=== PATIENT | female | born 1960 | race Caucasian/White ===

== ENCOUNTER → 2017-03-14 13:28 | Outpatient (CLI) | payer MEDICAID ==
[2013-12-17 06:15] VITALS: BMI 31.6
[~2017-03-14 13:28] MED LIST: CELEXA20 MG PO; HYDROCODONE-APA1 TAB PO; KLONOPIN1 MG PO; PROVENTIL HFA6.7 GM INH; TOPAMAX100 MG PO
== END | disposition home or self-care (01) ==
LOC: D.MRI 13:28
DX: M25.512 Pain in left shoulder (principal)

== ENCOUNTER 2017-04-04 05:30 | Day surgery (SDC) | payer MEDICAID ==
[2017-04-03 13:20] LABS: HEMATOCRIT 42.3 % (36.0-48.0); HEMOGLOBIN 14.4 g/dL (12-16); MCH 31.6 pg (26.0-34.0); MEAN PLATELET VOLUME 11.2 fL (7.4-10.4); RBC 4.55 10x6/uL (4.00-5.40); WBC 5.2 10x3/uL (4.8-10.8)
[2017-04-04 12:03] VITALS: BP 119/63; BMI 35.0
[2017-04-04] MEDS ORDERED: HYDROCODONE-APA1 TAB PO (14:51)
--- NOTE | 2017-04-04 16:57 | NUR ---
5847 DISCHARGE INSTRUCTIONS COMPLETE. PT HAS NO QUESTIONS OR CONCERNS AT THIS TIME. PT INSTRUCTED TO MAKE FOLLOW UP APPOINTMENT DUE TO OFFICE BEING CLOSED. PRESCRIPTION FOR NORCO GIVEN. ESCORTED OUT BY LUZ MARIA RIZVI.
--- NOTE | 2017-04-29 12:37 | OP ---
PATIENT NAME: SOM SHARMA MEDICAL RECORD: [id number] :62 LOCATION:[facility] ADMISSION DATE: SURGEON: LILY GONZALEZ MD DATE OF OPERATION: 04/04/2017 PREOPERATIVE DIAGNOSES: Impingement syndrome of the left shoulder with acromioclavicular arthritis and rotator cuff repair. Also, the patient had a cyst on her left shoulder that was excised as well. POSTOPERATIVE DIAGNOSES: Impingement syndrome of the left shoulder with acromioclavicular arthritis and rotator cuff repair. Also, the patient had a cyst on her left shoulder that was excised as well. PROCEDURES: 1. Left shoulder arthroscopy with arthroscopic rotator cuff repair. 2. Arthroscopic distal clavicle excision through separate incision -- 1 cm. 3. Arthroscopic subacromial decompression with acromioplasty and bursectomy. 4. Removal of subcutaneous cyst on the shoulder itself. OPERATIVE SUMMARY IN DETAIL: After obtaining the appropriate preoperative orthopedic surgery consent as well as anesthetic consultation, evaluation and clearance, the patient was brought to the operating room and placed on the table in supine position. After general laryngeal mask was administered, the patient was placed in a right lateral decubitus position. All pressure points were well padded to include down leg peroneal pad as well as axillary roll. The patient was held firmly to the operating table using the vacuum pack suction system. Left upper extremity and shoulder were then held in place in the Arthrex traction boom at 30 degrees of forward flexion, 30 degrees of abduction with 10 pounds of traction laterally. Arthroscopy was established in the glenohumeral joint from a posterior portal. Anterior portal was established in the anterior safe interval. Diagnostic arthroscopy did reveal the patient to have rotator cuff tear. Accessory lateral portal was created through which the rotator cuff footprint was slightly denuded and portions of nonviable-appearing rotator cuff were taken down with the Arthrex resector. Attention was then turned to the subacromial space. While on the subacromial space, the [place] tissue ablation system was used to denude the undersurface of the acromion of all soft tissue elements and release coracoacromial ligament and also denuded the area around the acromioclavicular joint. A 5.0 barrel bur was used to perform acromioplasty at the level of acromioclavicular joint. Two separate arthroscopic incisions under direct arthroscopic visualization, distal clavicle was taken down for 5 cm. Next, attention was turned to the rotator cuff. A simple inverted #2 FiberTape was utilized to reapproximate the rotator cuff back to the decorticated bleeding footprint. It was held laterally with a 5.5 SwiveLock. Having completed this, arthroscopy portals were closed in routine interrupted fashion. The small area of cyst was very simply excised and came out and appeared to be a nonmalignant simple subcutaneous cyst. It was sent for permanent pathology. The wound was closed after irrigation. Sterile dressings were applied. The patient was awakened, taken to recovery room in stable condition. All final needle and sponge counts were correct. TRANSINT:[id number] Voice Confirmation ID: [id number] DOCUMENT ID: [id number] OPERATIVE REPORT [id number] SOM SHARMA MD, LILY RUSSELL at 1237 CC: [id number] DICTATION DATE: 04/29/17 1048 TRIMMING PRESS OPERATOR: 04/29/17 1220 [facility] 04/04/[address] [address]
== END 2017-04-04 16:55 | disposition home or self-care (01) ==
LOC: D.OPS 05:30 → D.PAN 13:10 → D.OPS 14:00 → D.PAN 14:30 → D.OPS 16:55
PROVIDERS: Anesthesiology
DX: M75.102 Unspecified rotator cuff tear or rupture of left shoulder, not specified as traumatic (principal); M75.42 Impingement syndrome of left shoulder; Z01.812 Encounter for preprocedural laboratory examination

== ENCOUNTER 2019-01-31 04:16 | Outpatient (CLI) | payer MEDICARE, MEDICAID ==
[~2019-01-31] VITALS: Ht 165.1 cm; Wt 102.7 kg
--- NOTE | ~2019-01-31 | HEMODYNAMI ---
PATIENT:SOM SHARMA MEDICAL RECORD: [id number] : 62 [facility] [id number] AD[facility]ION DATE: 01/31/19 Generatedon:01/31/201911:06 Patient name: SOM SHARMA Patient #: [id number] : 1960 Date of study: 01/31/2019 Page: Of Hemodynamic Procedure Report Patient Data Patient Demographics Procedure consent was obtained First Name: SOM Gender: Female Last Name: EDITH : 1960 Patient #: [id number] Age: 58 year(s) Race: SSN: [id number] Additional ID: [id number] Contact details [address]: [address] [place] [address] State: [place] City: [place] Zip code: [address] Past Medical History Allergies Allergen Reaction Date Comments Reported Other allergy 01/31/2019 Mell PRINGLE Admission Admission Data Admission Date: 01/31/2019 Admission Time: 5:05 Arrival Date: 01/31/2019 Arrival Time: 0:00 Room #: D.2124 Insurance Payor: Private health insurance [facility] #: [id number] Height (in.): 64.96 BSA: 2.08 (m2) Height (cm.): 165 BMI: 37.47 (kg/m2) Weight (lbs.): 224.87 Weight (kg.): 102 Lab Results Lab Result Date: 01/31/2019 Lab Result Time: 0:00 Biochemistry Name Units Result Min Max BUN mg/dl 12 --(-*--)-- 7 18 Creatinine mg/dl 0.8 --(-*--)-- 0.6 1.3 eGFR ml/min 78 *-(----)-- 90 120 NONAFRICAN CBC Name Units Result Min Max Hemoglobin g/dl 12.4 *-(----)-- 13.5 17.5 Procedure Procedure Types Cath Procedure Diagnostic Procedure [facility] w/Coronaries Procedure Description Procedure Date Procedure Date: 01/31/2019 Procedure Start Time: 10:58 Procedure End Time: 11:06 Procedure Staff Name Function Saurav Lam MD Performing Physician Wilfirdo Rosenberg RT Monitor Jaclyn Torre RT Scrub Omar Rogers RN Nurse Procedure Data Cath Procedure Fluoroscopy Diagnostic fluoroscopy Total fluoroscopy Time: 0.8 time: 0.8 min min Diagnostic fluoroscopy Total fluoroscopy dose: 312 dose: 312 mGy mGy Contrast Material Contrast Material Type Amount (ml) Isovue 300 46 Entry Location Entry Primary Successful Side Size Upsize Upsize Entry Closure Succes sful Closure Location (Fr) 1 (Fr) 2 (Fr) Remarks Device Remarks Femoral Right 5 Fr Exoseal artery Estimated blood loss: 10 ml Diagnostic catheters Device Type Used For End Catheter Placement MULTIPACK Pigtail 5 Fr Procedure catheter MULTIPACK JL 4.0 5Fr Procedure catheter MULTIPACK 3DRC 5Fr Procedure catheter Procedure Complications No complications Procedure Medications Medication Administration Route Dosage 0.9% NaCl I.V. 100 ml/hr Oxygen etCO2 Nasal cannula 2 l/min Heparin Flush Bag added to field 2 bags (1000units/500ml NS) Lidocaine 2% added to field 20 Versed I.V. 2 mg Fentanyl I.V. 100 mcg Hemodynamics Rest BSA: 2.08 (m2) HGB: 12.4 (g/dl) O2 Consumption: Estimated: 190.33 (ml/min) O2 Co nsumption indexed: Estimated:91.5 (ml/min/m) Heart Rate: 59 (bpm) Pressure Samples Time Site Value (mmHg) Purpose Heart Use Rate(bpm) 11:00 LV 21/13,16 Snapshot 81 Snapshots Pre Cath Intra NCS Post Cath Vital Signs Time Heart Resp SPO2 etCO2 NIBP (mmHg) Rhythm Pain Sedation Rate (ipm) (%) (mmHg) Status Level (bpm) 10:41:34 55 25 100 33.7 145/74(97) NSR 0 (11) 10(A) , No pain 10:46:11 59 16 96 8.2 129/67(90) NSR 0 (11) 10(A) , No pain 10:50:39 60 17 99 36 148/70(114) NSR 0 (11) 10(A) , No pain 10:55:17 59 16 100 36 152/71(100) NSR 0 (11) 10(A) , No pain 10:59:54 71 20 100 24.7 132/72(92) NSR 0 (11) 10(A) , No pain 11:04:24 61 21 100 38.2 140/71(100) NSR 0 (11) 10(A) , No pain Medications Time Medication Route Dose Verified Delivered Reason Notes Eff ectiveness by by 10:40:25 0.9% NaCl I.V. 100 Omar Omar Per ml/hr Ken Rogers physician RN RN 10:40:33 Oxygen etCO2 2 Omar Omar for low 02 Nasal l/min Lorigan Lorigan sats cannula RN RN 10:40:43 Heparin Flush added 2 Omar Omar used for Bag to bags Lorigan Ken procedure (1000units/500ml field RN RN NS) 10:40:52 Lidocaine 2% added 20ml Omar Omar for local to vial Lorigan Lorigan anesthetic field RN RN 10:59:55 Versed I.V. 2 mg Omar Omar for Lorigan Lorigan sedation RN RN 11:00:03 Fentanyl I.V. 100 Omar Omar for mcg Lorigan Lorigan sedation RN ethics officer Log Time Note 10:09:42 Diagnostic Cath Status : Elective 10:23:43 Omar Rogers RN sent for patient. Start room use. 10:23:45 Time tracking: Call back (After hours or weekends) 10:23:50 Plan of Care:Hemodynamics will remain stable., Cardiac rhythm will remain stable., Comfort level will be maintained., Respiratory function will remain adequate., Patient/ family verbilizes understanding of procedure., Procedure tolerated without complication., Recovers from procedure without complications.. 10:24:29 Informed consent obtained and on chart 10::41 Lab Result : Creatinine 0.8 mg/dl 10::41 Lab Result : BUN 12 mg/dl 10::41 Lab Result : Hemoglobin 12.4 g/dl 10::41 Lab Result : eGFR NONAFRICAN 78 ml/min 10:26:01 2) 60-89 Mildly reduced kidney function, and other findings (as for stage 1) point to kidney disease. 10:26:07 Maximum allowable contrast dose (3.7 X eGFR X 0.75)216 ml. 10:29:28 Patient received from Med II to CCL 1 Alert and oriented. Tansferred to table in Supine position. 10:29:29 Warm blankets applied, and rico hugger turned on for patient comfort. 10:29:30 Correct patient and procedure confirmed by team. 10:29:32 ECG and BP/O2 sat monitors applied to patient. 10:40:07 Baseline sample Acquired. 10:40:07 Vital chart was started 10:40:11 Rhythm: sinus rhythm 10:40:13 Full Disclosure recording started 10:40:25 0.9% NaCl 100 ml/hr I.V. was administered by Omar Rogers RN; Per physician; 10:40:33 Oxygen 2 l/min etCO2 Nasal cannula was administered by Omar Rogers RN; for low 02 sats; 10:40:43 Heparin Flush Bag (1000units/500ml NS) 2 bags added to field was administered by Omar Rogers RN; used for procedure; 10:40:52 Lidocaine 2% 20ml vial added to field was administered by Omar Rogers RN; for local anesthetic; 10:42:18 ACC Patient presents with Unstable Angina CCS Anginal Class 4--Inability to carry out any physical activity w/o angina. Angina may occur at rest. 10:42:22 Procedure Status Urgent Heart Cath (IP). 10:42:31 H&P Date Dictated: 01/30/2019 Within 30 days and on chart.. 10:42:32 Pre-procedure instructions explained to patient. 10:42:32 Pre-op teaching completed and patient verbalized understanding. 10:42:34 Family in patients room. 10:42:35 Patient NPO since Midnight. 10:42:50 Patient allergic to Other allergyPCN, Benadryl 10:42:52 Is the patient allergic to Iodine/contrast media? No. 10:42:53 Is patient on blood thinner?Yes 10:42:56 ACC The patient was administered the following blood thiners within the last 24 hours: ACCAspirin, ACCPlavix 10:42:58 Patient diabetic? No. 10:43:00 Previous problem with sedation/anesthesia? No ? 10:43:00 Snore? Yes 10:43:01 Sleep apnea? No 10:43:02 Deviated septum? Yes 10:43:03 Opens mouth fully? Yes 10:43:04 Sticks out tongue? Yes 10:43:07 Airway obstruction? Yes asthma 10:43:10 Dentures? Yes in tight 10:43:13 Pre procedure: right dorsailis pedis pulse 2+ Normal; easily identifiable; not easily obliterated 10:43:15 Patient pain scale 0/10 ?. 10:43:20 IV patent on arrival in right wrist with 0.9% NaCl at O. 10:43:21 Lab results completed and on chart. 10:43:23 Right groin area was prepped with chlora-prep and draped in sterile fashion 10:43:24 Alarms reviewed by R. N. 10:43:24 Sharps counted by scrub and verified by R.N. 10:43:27 Use device set Femoral Dx 10:43:27 ACIST Syringe (41321) opened to sterile field. 10:43:28 Bag Decanter (2002S) opened to sterile field. 10:43:28 Medline Cath Pack ([id number]) opened to sterile field. 10:43:29 ACIST Hand Control (45090) opened to sterile field. 10:43:29 ACIST Manifold (35980) opened to sterile field. 10:43:30 Tegaderm 4 x 4 (1626W) opened to sterile field. 10:43:31 DIAGNOSTIC Multipack 5Fr catheter set (IL1003) opened to sterile field. 10:43:32 EMERALD Guide Wire (502-527) opened to sterile field. 10:43:32 SHEATH 5FR [place] (LKF719) opened to sterile field. 10:44:11 Patient Weight : 224.87 lbs 10:44:15 Patient Height : 64.96 inches 10:44:28 Insurance Payor : Private health insurance 10:44:43 Arrival Date: 01/31/2019 12:00:00 AM 10:46:07 ACCPatient has been prescribed/administered the following anti-anginal medication within the last 2 weeks: None 10:46:14 Zero performed for pressure channel P1 10:56:21 Physician arrived 10:56:21 --------ALL STOP TIME OUT------ 10:56:22 Final Timeout: patient, procedure, and site verified with staff and physician. All members of the team are in agreement. 10:56:23 Right groin site verified by team. 10:56:27 Fire Safety Assessment: A--An alcohol-based skin anteseptic being used preoperatively., C--Open oxygen or nitrous oxide is being used., D--An ESU, laser, or fiber-optic light is being used. 10:56:30 Physical assessment completed. ASA score P 2 - A patient with mild systemic disease as per Saurav Lam MD. 10:56:34 Sedation plan: IV Moderate Sedation Medication:Versed, Fentanyl 10:58:56 Procedure started. 10:58:59 Local anesthetic to right femoral artery with Lidocaine 2% by Saurav Lam MD.INITIAL ACCESS ONLY 10:59:04 A 5 Fr sheath was inserted into the Right Femoral artery 10:59:33 A MULTIPACK Pigtail 5 Fr catheter was advanced over the wire and used for Procedure. 10:59:55 Versed 2 mg I.V. was administered by Omar Rogers RN; for sedation; 11:00:03 Fentanyl 100 mcg I.V. was administered by Omar Rogers RN; for sedation; 11:00:11 LV gram done using TOVAR 11:00:15 Injector settings: Ml/sec: 10, Volume: 20, 11:00:16 LV hemodynamics recorded. 11:00:22 EF : 60 % 11:00:24 Catheter exchanged over wire. 11:00:27 A MULTIPACK JL 4.0 5Fr catheter was advanced over the wire and used for Procedure. 11:00:49 LCA angiography performed. 11:01:20 Catheter exchanged over wire. 11:01:23 A MULTIPACK 3DRC 5Fr catheter was advanced over the wire and used for Procedure. 11:02:18 RCA angiography performed. 11:02:19 Catheter removed. 11:02:20 EXOSEAL 5Fr (EX500) opened to sterile field. 11:02:27 Sheath removed intact; hemostasis achieved with Exoseal to the Right Femoral artery. 11:02:29 Procedure ended.(Physican Out) 11:03:15 ACCDominant side:Co-Dominant 11:04:05 Fluoroscopy time 00.80 minutes. 11:04:10 Flurop Dose total: 312 11:04:10 Fluoroscopy dose: 312 mGy 11:04:13 Dose Area Product 68232 mGy/cm. 11:04:17 Contrast amount:Isovue 300 46ml. 11:04:27 Maximum allowable dose exceeded? No. 11:04:28 Sharps counted by scrub and verified by R.N. 11:04:28 Insertion/operative site no bleeding no hematoma. 11:04:31 Post-op/insertion site Right Femoral artery dressed using a 4 x 4 and Tegaderm. 11:05:00 Post Procedure Pulses reassessed and unchanged 11:05:02 Post-procedure physical assessment completed. ASA score P 2 - A patient with mild systemic disease as per Saurav Lam MD. 11:05:05 Post procedure rhythm: unchanged. 11:05:09 Estimated blood loss: 10 ml 11:05:11 Post procedure instruction explained to patient.Patient verbalizes understanding. 11:05:12 Patient needs reinforcement of post procedure teaching. 11:05:33 Procedure and supply charges have been captured, reviewed, submitted and are correct. 11:05:36 Procedure Complication : No complications 11:05:38 Vital chart was stopped 11:05:38 See physician's report for complete and final results. 11:05:56 Report given to PCU. 11:05:58 Patient transfered to PCU with Stretcher. 11:06:00 Procedure ended. 11:06:00 Full Disclosure recording stopped 11:06:06 End room use (Document Last) Device Usage Item Name Manufacture Quantity Catalog Hospital Part Current Minimal L ot# / Number Charge Number Stock Stock Serial# Code ACIST Acist 1 54529 276749 [id number] 20 Syringe Medical (22225) Systems Inc Bag Microtek 1 2001S 693281 02527 348418 5 Decanter Medical Inc. () Medline Medline 1 [id number] 135594 65238 518804 5 Cath Pack ([id number]) ACIST Hand Acist 1 50224 846734 046888 083440 5 Control Medical (25143) Systems Inc ACIST Acist 1 73192 133744 827230 094338 5 Manifold Medical (28214) Systems Inc Tegaderm 4 3M 1 1626W 134470 290233 928549 5 x 4 (1626W) DIAGNOSTIC Cardinal 1 VD6605 186867 60210 554380 30 [email or web address] 5Fr catheter set (LK1627) EMERALD Cardinal 1 502-455 364786 431850 307056 5 Guide Wire Health (324-990) SHEATH 5FR Terumo 1 FEN599 896889 914555 966391 5 [place] (RZK368) MULTIPACK Cardinal 1 634540 5 Pigtail 5 Health Fr catheter MULTIPACK Cardinal 1 928472 5 JL 4.0 5Fr Health catheter MULTIPACK Cardinal 1 048080 5 3DRC 5Fr Health catheter EXOSEAL 5Fr Cardinal 1 EX500 042699 848326 693015 10 (EX500) Health Signature Audit [place] Stage Time Signature Unsigned Intra-Procedure 01/31/2019 Wilfrido Rosenberg 11:06:41 AM RT(R) Signatures Performing Physician : Signature : Saurav Lam MD Date : Time : Monitor : Wilfrido Rosenberg RT Signature : Date : Time : Nurse : Omar Rogers Signature : RN Date : Time : [address] [place] [address]
[2019-01-31 04:37] VITALS: BP 144/86
--- NOTE | 2019-01-31 04:47 | NUR ---
PT ACTIVELY VOMITING, EDP INFORMED.
--- NOTE | 2019-01-31 05:02 | NUR ---
PT GIVEN WARM BLANKETS.
[2019-01-31 05:09] LABS: BASOPHILS 0.6 % (0-2); HEMATOCRIT 36.3 % (36.0-48.0); HEMOGLOBIN 12.4 g/dL (12-16); IMMATURE GRANULOCYTES 0.2 % (0-5); LYMPHOCYTES 42.5 % (15-50); MCH 31.4 pg (26.0-34.0); MCHC 34.2 g/dL (31.0-37.0); MCV 91.9 fL (80.0-100.0); MEAN PLATELET VOLUME 10.7 fL (7.4-10.4); MONOCYTES 7.1 % (2-11); NEUTROPHILS 47.6 % (40-80); PLATELET COUNT 207 10x3/uL (130-400); RBC 3.95 10x6/uL (4.00-5.40); RDW 12.7 % (11.5-14.5); WBC 6.4 10x3/uL (4.8-10.8)
[2019-01-31 05:15] LABS: APTT 30.6 SECONDS (22.8-39.4); INR 0.96 (0.85-1.17); PROTIME 12.3 SECONDS (11.6-15.0)
[2019-01-31 05:25] LABS: ALBUMIN 3.3 g/dL (3.4-5.0); ALKALINE PHOSPHATASE 113 U/L (46-116); ALT (SGPT) 21 U/L (10-68); BILIRUBIN - TOTAL 0.41 mg/dL (0.2-1.3); CALC OSMOLALITY 279 mosm/kg (275-300); CALCIUM 8.5 mg/dL (8.5-10.1); CARBON DIOXIDE 26.1 mmol/L (21.0-32.0); CHLORIDE - SERUM 104 mmol/L (98-107); CREATININE - SERUM 0.8 mg/dL (0.6-1.3); GLUCOSE 112 mg/dL (74-106); MAGNESIUM - SERUM 1.9 mg/dL (1.8-2.4); POTASSIUM - SERUM 3.9 mmol/L (3.5-5.1); PROTEIN - SERUM 6.6 g/dL (6.4-8.2); SODIUM 140 mmol/L (136-145); TROPONIN-I 0.028 ng/mL (0.000-0.060); UREA NITROGEN 12 mg/dL (7-18); eGFR NON AFRICAN AMERICAN 78 mL/min (90-120)
[2019-01-31 06:02] VITALS: BP 150/70; BMI 37.6
--- NOTE | 2019-01-31 07:20 | NUR ---
ASSESSMENT DONE. DENIES NEEDS
[2019-01-31 08:45] VITALS: BP 175/72
[2019-01-31 09:33] VITALS: Ht 165.1 cm; Wt 102.7 kg
--- NOTE | 2019-01-31 11:06 | HP ---
PATIENT: SOM SHARMA MEDICAL RECORD: [id number] ACCOUNT: [id number] LOCATION:[address] : 62 ADMISSION DATE: 01/31/19 PCP: OLIVIA MAHMOOD MD HISTORY AND PHYSICAL EXAMINATION DIAGNOSES: 1. Angina. 2. Family history of coronary artery disease. 3. Obesity. 4. Hypertension. HISTORY OF PRESENT ILLNESS: Mrs. Sharma has no previous cardiac history. She began having chest discomfort yesterday evening, very typical anginal discomfort, a band-like squeezing sensation around her chest. It is worsened as the nights goes on, she is still having chest pain at 6/10. It is actually worsening this morning. She has received multiple sublingual nitro, aspirin, Plavix, continues to have the chest pain. She is now nauseated as well. The chest pain is radiating to her jaw and down her left arm. She feels diaphoretic and short of breath this morning. She has a strong family history of coronary artery disease, but she has not had an evaluation in the past. PHYSICAL EXAMINATION: CONSTITUTIONAL/GENERAL APPEARANCE: Well nourished, well developed, appears stated age. EYES: Lids and conjunctivae noninjected. No discharge. No pallor. ENT: Lips within normal limit. No cyanosis. No pallor. NECK: Carotid arteries, bilateral normal upstroke. No bruits. No thrills. No jugular venous pressure or distention. CERVICAL LYMPH NODES: Nontender. Nonenlarged. THYROID: Not enlarged. No nodules. CARDIOVASCULAR: Precordial exam, nondisplaced. No heaves or pericardial thrills. Rate and rhythm, regular. Heart sounds, normal S1, normal S2. No S3, no gallop, no rub. Systolic murmur, not heard. Diastolic murmur, not heard. RESPIRATORY: Respiratory effort, unlabored. Normal curvature. No thoracic deformity. No chest wall tenderness. Percussion, resonant. Auscultation, clear. No wheezes, no rales, no rhonchi. ABDOMEN: Soft, nondistended, nontender. No abdominal pain, no vomiting and normal appetite. MUSCULOSKELETAL: No joint tenderness, normal gait, normal tone. SKIN: Warm and dry. OVERALL IMPRESSION: Chest discomfort compatible with angina. Clearly, she is markedly uncomfortable, clutching her chest in pain. It is a very typical anginal pain. At this time, we will try to make her pain free with morphine and further nitrates and proceed with coronary angiography. TRANSINT:[id number] Voice Confirmation ID: [id number] DOCUMENT ID: [id number] HISTORY AND PHYSICAL [id number] SOM SHARMA, SAMUEL BRUNNER at 1106 CC: [id number] DICTATION DATE: 01/31/19929 ELECTROENCEPHALOGRAPHIC TECHNICIAN: 01/31/19958 ADM IN [place] [id number] [place] [id number]
[2019-01-31] MEDS ORDERED: HYDROCODON-ACE1 EAC7 PO (13:38)
--- NOTE | 2019-01-31 14:17 | NUR ---
I have reviewed this patient and I concur with the Shift Assessment completed by the Licensed Practical Nurse today this shift.
--- NOTE | 2019-01-31 15:00 | NUR ---
DC AND RX GIVEN TO PT
--- NOTE | 2019-01-31 15:18 | NUR ---
DC HOME PER PERSONAL CAR
--- NOTE | 2019-02-02 08:35 | MORECARE ---
CASE MANAGEMENT DISCHARGE SUMMARY PATIENT: SOM SHARMA UNIT: [id number] ADM DATE: 01/31/19 AGE: 58 : 62 SEX: F ROOM/BED: D.0895 AUTHOR: MARIA M LE PHYSICIAN: REFERRING PHYSICIAN: SAMUEL CHILDERS MD DATE OF SERVICE: 02/02/19 Discharge Plan Patient Name: SOM SHARMA [facility] [facility] 1960 Planned Disposition: Home Anticipated Discharge Date: 01/31/19 Discharge Date: 01/31/2019 Expected LOS: 1 Initial Reviewer: [email or web address] Initial Review Date: 02/02/2019 Generated: 02/02/19 9:34 am Patient Name: SOM SHARMA Page [id number] at 0835 All edits/amendments must be made on the electronic document DICTATION DATE: 02/02/19833 JUNK REMOVAL SPECIALIST: OBDULIO 02/02/19833 RPT#: [id number] DC DATE:01/31/19 STATUS: DIS IN [facility] [address] [facility] [place] [address] END OF REPORT
--- NOTE | 2019-02-04 14:31 | OP ---
PATIENT NAME: SOM SHARMA MEDICAL RECORD: [id number] :62 LOCATION:D.CAT ADMISSION DATE: SURGEON: SAMUEL CHILDERS MD DATE OF OPERATION: 01/31/2019 PROCEDURES: 1. Left heart catheterization. 2. Selective coronary angiography. 3. Left ventriculogram. INDICATION: Chest pain compatible with angina. PROCEDURE IN DETAIL: After informed consent was obtained and after a detailed explanation of risks, benefits as well as alternative therapies, the patient elected to proceed with angiogram and heart catheterization. The right femoral area was prepped and draped in normal sterile fashion. Right femoral artery was cannulated via modified Seldinger technique with placement of 5-Frisian sheath. All catheters exchanged through this sheath. FINDINGS: Left ventriculogram was performed in standard 30-degree TOVAR view, reveals good cardiac wall motion, ejection fraction of 60%. SELECTIVE CORONARY ANGIOGRAPHY: Left main, left anterior descending, left circumflex, and right coronary artery are all smooth-walled vessels with no angiographic evidence of coronary artery disease. OVERALL IMPRESSION: 1. No angiographic evidence of coronary artery disease. 2. Normal left heart pressures. 3. Normal left ventricular systolic function. TRANSINT:[id number] Voice Confirmation ID: [id number] DOCUMENT ID: [id number] SAMUEL CHILDERS MD at 1431 CC: [id number] DICTATION DATE: 01/31/19 1108 STEEL POST INSTALLER SUPERVISOR: 01/31/19 1120 DEP CLI 01/31/19 [place] [id number]
--- NOTE | 2019-02-04 14:32 | DS ---
PATIENT:SOM SHARMA :[birth year] MEDICAL RECORD: [id number] DISCHARGE SUMMARY ADMISSION DATE: 01/31/19 DISCHARGE DATE: 01/31/19 DATE OF SERVICE: 01/31/2019 DIAGNOSES: 1. Chest pain, noncardiac. 2. Normal cardiac catheterization. Ms. Sharma presents with extremely severe chest discomfort; however, cardiac catheterization was normal. Her pain was relieved with morphine. She was given [place] to take on a p.r.n. basis for the next few days. If she continues to have chest pain, she will follow up with her primary care physician. TRANSINT:[id number] Voice Confirmation ID: [id number] DOCUMENT ID: [id number] ASMUEL CHILDERS MD at 1432 CC: [id number] DICTATION DATE: 01/31/19 1107 SKATE HOP: 01/31/190 DEP CLI 01/31/19 [place] [id number] [place] [address]
== END 2019-01-31 15:18 | disposition home or self-care (01) ==
LOC: OBSVTIME → D.CATH 04:16 → D.ER 04:16 → D.M2 05:05 → OBSVTIME 05:05 → D.ER 05:05 → EDSTATUS 12:48 → D.CATH 15:18 → D.M2 15:18
PROVIDERS: Family Medicine; ATTEND Internal Medicine Interventional Cardiology
DX: I20.9 Angina pectoris, unspecified (principal); R07.9 Chest pain, unspecified; E66.9 Obesity, unspecified; I10 Essential (primary) hypertension